=== PATIENT | male | born 1975 | race Hispanic/Latino ===

== ENCOUNTER 2021-02-28 22:33 | Emergency (ER) | payer SELFPAY ==
[2021-02-28] MEDS ORDERED: BUPIVACAINE 0.5% PF 10 ML VIAL ONE (23:27)
[2021-03-01] MEDS ORDERED: SMZ./TMP. 800/160 MG TABLET ONE (00:37)
--- NOTE | 2021-03-01 00:38 | EDPHYS ---
Physician Documentation [facility] Name: Lam Quiros Age: 45 yrs Sex: Male : 1975 Arrival Date: 02/28/2021 Time: 22:37 Bed 8 Private MD: ED Physician Rashad Andrews HPI: 03/01 00:03 This 45 yrs old Male presents to ER via Ambulatory with complaints of infected jmm finger. 00:03 The patient or guardian reports pain, swelling. Onset: The symptoms/episode jmm began/occurred gradually, 1 day(s) ago. Modifying factors: The symptoms are alleviated by nothing, the symptoms are aggravated by nothing. Associated signs and symptoms: Pertinent negatives: cyanosis distally, decreased sensation distally, fever, numbness distally, tingling distally, vomiting. This is a 45 year old male with no chronic medical conditions that presents to the ED with complaints of left 5th finger swelling. Patient states the pain started around 1 day ago. Denies fever. . Historical: - Allergies: 02/28 22:49 No Known Allergies; rr5 - Home Meds: 22:49 None [Active]; rr5 - PMHx: 22:49 None; rr5 - PSHx: 22:49 None; rr5 - Immunization history:: Adult Immunizations not immunized, Last tetanus immunization:. - Social history:: Smoking status: unknown Patient uses alcohol, occasionally. Patient/guardian denies using street drugs. ROS: 03/01 00:03 Constitutional: Negative for fever, chills, and weight loss, Cardiovascular: Negative jmm for chest pain, palpitations, and edema, Respiratory: Negative for shortness of breath, cough, wheezing, and pleuritic chest pain. Skin: Positive for erythema, swelling. All other systems are negative. Exam: 00:03 Constitutional: This is a well developed, well nourished patient who is awake, alert, jmm and in no acute distress. Head/Face: atraumatic. Eyes: EOMI, no conjunctival erythema appreciated ENT: Moist Mucus Membranes Neck: Trachea midline, Supple Chest/axilla: Normal chest wall appearance and motion. Cardiovascular: Regular rate and rhythm. No edema appreciated Respiratory: Normal respirations, no respiratory distress appreciated Abdomen/GI: Non distended, soft Back: Normal ROM 00:03 Skin: erythema, swelling appreciated to the left 5th distal phalanx. 00:03 Neuro: Orientation: is normal, Mentation: is normal, Memory: is normal. Vital Signs: 02/28 22:47 BP 145 / 95; Pulse 73; Resp 16; Temp 97.5; Pulse Ox 97% ; Weight 99.79 kg; Height 5 ft. rr5 11 in. (180.34 cm); Pain 4/10; 03/01 00:55 BP 136 / 71; Pulse 68; Resp 18; Pulse Ox 100% ; ak2 02/28 22:47 Body Mass Index 30.68 (99.79 kg, 180.34 cm) rr5 Procedures: 00:05 I \T\ D: Incision and drainage was performed for an abscess of the left dorsal aspect of jmm distal phalanx of left little finger and left little fingernail Prepped with Betadine, Anesthetized with 0.5% marcaine digital block. Incised with 18 gauge . Drained large amount purulent fluid. Packed with non. Dressing: sterile 4x4 gauze, non-Adherent dressing, the patient tolerated the procedure well. MDM: 02/28 23:07 Patient medically screened. [facility] 03/01 00:06 Data reviewed: vital signs, nurses notes. Counseling: I had a detailed discussion with [facility] the patient and/or guardian regarding: the historical points, exam findings, and any diagnostic results supporting the discharge/admit diagnosis, the need for outpatient follow up, to return to the emergency department if symptoms worsen or persist or if there are any questions or concerns that arise at home. Administered Medications: 00:19 Drug: Bactrim (trimethoprim-sulfamethoxazole) (160 mg-800 mg (DS) 1 tablet Route: PO; ak2 Disposition: 03/01/21 00:37 Discharged to Home. Impression: Paronychia. - Condition is Stable. - Discharge Instructions: Paronychia. - Prescriptions for Doxycycline Hyclate 100 mg Oral Tablet - take 1 tablet by ORAL route every 12 hours; 20 tablet. Bactrim DS 800- 160 mg Oral Tablet - take 1 tablet by ORAL route every 12 hours for 10 days; 20 tablet. - Medication Reconciliation Form, Thank You Letter, Antibiotic Education, Prescription Opioid Use form. - Follow up: Private Physician; When: 2 - 3 days; Reason: Recheck today's complaints, Continuance of care, Re-evaluation by your physician. Signatures: Junior Durant PA PA jmm Roque, Raymond, RN RN rr5 Byron Yoo ak2 Corrections: (The following items were deleted from the chart) 00:57 00:37 03/01/2021 00:37 Discharged to Home. Impression: Paronychia. Condition is Stable. ak2 Forms are Medication Reconciliation Form, Thank You Letter, Antibiotic Education, Prescription Opioid Use. Follow up: Private Physician; When: 2 - 3 days; Reason: Recheck today's complaints, Continuance of care, Re-evaluation by your physician. sylwia
--- NOTE | 2021-03-01 00:38 | ER ---
Nurse's Notes [facility] Name: Lam Quiros Age: 45 yrs Sex: Male : 1975 Arrival Date: 02/28/2021 Time: 22:37 Bed 8 Private MD: Diagnosis: Paronychia Presentation: 02/28 22:47 Chief complaint: Patient states: my finger is swollen started yesterday and it got rr5 worse today. Coronavirus screen: Client denies travel out of the [place] in the last 14 days. At this time, the client does not indicate any symptoms associated with coronavirus-19. Ebola Screen: Patient negative for fever greater than or equal to 101.5 degrees Fahrenheit, and additional compatible Ebola Virus Disease symptoms Patient denies exposure to infectious person. Patient denies travel to an Ebola-affected area in the 21 days before illness onset. Initial Sepsis Screen: Does the patient meet any 2 criteria? No. Patient's initial sepsis screen is negative. Does the patient have a suspected source of infection? Yes: Skin breakdown/wound. Risk Assessment: Do you want to hurt yourself or someone else? Patient reports no desire to harm self or others. Onset of symptoms was February 27, 2021. 22:47 Method Of Arrival: Ambulatory rr5 22:47 Acuity: NIRAV 3 rr5 Historical: - Allergies: 22:49 No Known Allergies; rr5 - Home Meds: 22:49 None [Active]; rr5 - PMHx: 22:49 None; rr5 - PSHx: 22:49 None; rr5 - Immunization history:: Adult Immunizations not immunized, Last tetanus immunization:. - Social history:: Smoking status: unknown Patient uses alcohol, occasionally. Patient/guardian denies using street drugs. Vital Signs: 22:47 BP 145 / 95; Pulse 73; Resp 16; Temp 97.5; Pulse Ox 97% ; Weight 99.79 kg; Height 5 ft. rr5 11 in. (180.34 cm); Pain 4/10; 03/01 00:55 BP 136 / 71; Pulse 68; Resp 18; Pulse Ox 100% ; ak2 02/28 22:47 Body Mass Index 30.68 (99.79 kg, 180.34 cm) rr5 ED Course: 02/28 22:37 Patient arrived in ED. es 22:49 Triage completed. rr5 22:50 Arm band placed on right wrist. rr5 23:04 Junior Durant PA is PHCP. sylwia 23:04 Rashad Andrews MD is Attending Physician. sylwia 03/01 00:15 Byron Yoo is Primary Nurse. ak2 00:56 No provider procedures requiring assistance completed. Patient did not have IV access ak2 during this emergency room visit. Administered Medications: 00:19 Drug: Bactrim (trimethoprim-sulfamethoxazole) (160 mg-800 mg (DS) 1 tablet Route: PO; ak2 Outcome: 00:37 Discharge ordered by MD. [facility] 00:56 Discharged to home ambulatory. ak2 00:56 Condition: good 00:56 Discharge instructions given to patient. 00:57 Patient left the ED. ak2 Signatures: Junior Durant PA PA jmm Salyer, Edna es Roque, Raymond, RN RN rr5 Byron Yoo ak2
[2021-03-01 01:23] VITALS: TEMP 97.5
[2021-03-01 01:25] VITALS: BP 136/71; O2SAT 100
== END 2021-03-01 00:57 | disposition home or self-care (01) ==
LOC: ER 22:33
PROC: 0J9K0ZZ Drainage of Left Hand Subcutaneous Tissue and Fascia, Open Approach (ICD-10-PCS; principal; 2021-03-01)
DX: L03.012 Cellulitis of left finger (principal)
CPT/HCPCS: 99283